=== PATIENT | female | born 1955 | race Caucasian/White ===

== ENCOUNTER 2017-12-25 14:57 | Emergency (ER) | payer MEDICARE ==
[~2017-12-25] VITALS: Ht 162.6 cm; Wt 47.2 kg
[2017-12-25] MEDS ORDERED: PROTONIX40 MG PO (15:18)
[2017-12-25] MEDS ORDERED: CARAMEL FLAVOR1 ML MISC (15:18)
[2017-12-25] MEDS ORDERED: UNITHROID88 MCG PO (15:18)
[2017-12-25] MEDS ORDERED: CARAFATE1 GM/10 ML PO (15:19)
[2017-12-25] MEDS ORDERED: OXYCODONE HCL5 M1 PO (15:19)
== END 2017-12-25 17:39 | disposition home or self-care (01) ==
LOC: ED 14:57
DX: S60.012A Contusion of left thumb without damage to nail, initial encounter (principal); X58.XXXA Exposure to other specified factors, initial encounter; F17.200 Nicotine dependence, unspecified, uncomplicated; Z88.0 Allergy status to penicillin; Z88.6 Allergy status to analgesic agent; Z88.8 Allergy status to other drugs, medicaments and biological substances; Z79.899 Other long term (current) drug therapy; Z79.891 Long term (current) use of opiate analgesic
CPT/HCPCS: 73130; 99283